=== PATIENT | male | born 1960 | race Caucasian/White ===

== ENCOUNTER 2017-06-24 17:24 | Emergency (ER) | payer SELFPAY ==
[2017-06-24 17:46] VITALS: TEMP 96.8
[2017-06-24] MEDS ORDERED: traMADol 37.5MG/APAP 325MG 1 EA TAB PO ONE (17:55)
[2017-06-24] MEDS ORDERED: KETOROLAC TROMETHAMINE INJ 60 MG/2 ML VIAL IM ONE (17:55)
[2017-06-24] MEDS ORDERED: ORPHENADRINE CITRATE 30 MG/ML AMP IM ONE (17:55)
--- NOTE | 2017-06-24 18:02 | ED.PDOC ---
History of Present Illness - General Chief Complaint: Back Pain or Injury Stated Complaint: back pain in thoracic area Time Seen by Provider: 06/24/17 17:55 Source: patient Exam Limitations: no limitations - History of Present Illness Initial Comments: PT PRESENTS TO THE ED WITH COMPLAINT OF RIGHT SHOULDER BLADE PAIN FOR THE PAST 2 DAYS. PT REPORTS HE WOKE UP WITH THE PAIN AND IT HAS PROGRESSIVELY BEEN GETTING WORSE. PT DENIES TAKING ANY OTC MEDICATIONS FOR PAIN. Timing/Duration: days Quality/Severity: moderate Back Pain Location: T-spine, paraspinous muscles Method of Injury/Prior Injury: unknown Improving Factors: immobilization, rest Worsening Factors: movement Allergies/Adverse Reactions: Allergies NO KNOWN ALLERGY Allergy (Verified 06/24/17 17:45) Home Medications: Ambulatory Orders Acetaminophen W/ Codeine [Tylenol W/ CODEINE #3] 1 ea PO Q4HR PRN #24 06/24/17 Diazepam [Valium] 2 mg PO Q6HR PRN #14 tab 06/24/17 Ibuprofen 800 mg PO Q8HR PRN #30 tab 06/24/17 Review of Systems - Review of Systems Respiratory: Denies: cough, short of breath Cardiology: Denies: chest pain, palpitations Genitourinary: Denies: dysuria, frequency Musculoskeletal: States: back pain, muscle pain Skin: Denies: change in color, dryness Past Medical History (General) - Patient Medical History Hx Stroke: Yes Hx of COPD: Yes Hx Congestive Heart Failure: No Hx Hypertension: Yes Surgical History: tonsillectomy - Vaccination History Hx Influenza Vaccination: No Hx Pneumococcal Vaccination: No - Social History Hx Tobacco Use: Yes Family Medical History - Family History Father Family History: Unknown Living Status: Unknown Physical Exam - Physical Exam General Appearance: Alert, Obvious distress, Well Developed, Well Groomed, Well Hydrated Neck Exam: non-tender, full range of motion, normal alignment Cardiovascular/Respiratory: regular rate, rhythm, no M/R/G, wheezing Back Exam: normal inspection, other - TENDERNESS TO THE RIGHT SHOULDER BLADE Neurologic: alert, normal mood/affect, oriented x 3 Skin Exam: normal color, warm/dry Progress - Progress Progress: 06/24/17 18:08 PT REPORTS SOME IMPROVEMENT IN PAIN AFTER IM TORADOL, NORFLEX, ULTRACET. Departure - Departure Clinical Impression: Trapezius strain Time of Disposition: 18:09 Disposition: Discharge to Home or Self Care Condition: Good Departure Forms: ED Discharge - Pt. Copy, Patient Portal Self Enrollment Instructions: DI for Back Strain or Sprain Activity: increase activity as tolerated, no exercise, no lifting, walking as tolerated Referrals: Family Practice [Provider Group] - 1-2 Weeks Prescriptions: Acetaminophen W/ Codeine [Tylenol W/ CODEINE #3] 1 ea PO Q4HR PRN #24 PRN Reason: Pain Diazepam [Valium] 2 mg PO Q6HR PRN #14 tab PRN Reason: Muscle Spasms Ibuprofen 800 mg PO Q8HR PRN #30 tab PRN Reason: Pain Home Medications: Ambulatory Orders Acetaminophen W/ Codeine [Tylenol W/ CODEINE #3] 1 ea PO Q4HR PRN #24 06/24/17 Diazepam [Valium] 2 mg PO Q6HR PRN #14 tab 06/24/17 Ibuprofen 800 mg PO Q8HR PRN #30 tab 06/24/17
[2017-06-24 18:23] VITALS: BP 154/82; O2SAT 96
== END 2017-06-24 18:39 | disposition home or self-care (01) ==
LOC: ER 17:24
DX: S29.012A Strain of muscle and tendon of back wall of thorax, initial encounter (principal); J44.9 Chronic obstructive pulmonary disease, unspecified; I10 Essential (primary) hypertension; Z87.891 Personal history of nicotine dependence; X58.XXXA Exposure to other specified factors, initial encounter
CPT/HCPCS: J1885; J2360